=== PATIENT | female | born 1960 | race Caucasian/White ===

== ENCOUNTER → 2025-03-11 09:51 | Outpatient (CLI) | payer OTHER, SELFPAY ==
--- NOTE | 2025-03-11 09:58 | DI.CT.S_ITS ---
PROCEDURE: CT CERVIAL SPINE W CON INDICATIONS: Encounter for other general examination TECHNIQUE: After the administration of intravenous Isovue contrast, 3 mm thick sections acquired through the levels of interest. Sagittal and coronal reformats were then constructed. For radiation dose reduction, the following was used: automated exposure control. COMPARISON: None. FINDINGS: Straightening of the normal cervical lordosis. Normal bone mineralization, prevertebral soft tissue and craniovertebral relationships. No abnormal enhancement. At C3-4, discectomy and fusion with good graft incorporation. Anterior plate and screw instrumentation in good position. No evidence of hardware failure or loosening. Mild residual central stenosis. No foraminal stenosis. At C4-5, hypertrophic arthropathy results and moderate central stenosis. Moderate bilateral foraminal stenosis. At C5-6, a posterior disc osteophyte complex and hypertrophic arthropathy. Kfhi-ar-riuoosmo central stenosis. Moderate to severe bilateral foraminal stenosis. At C6-7, hypertrophic arthropathy. Mild central stenosis. Moderate bilateral foraminal stenosis, left greater than right IMPRESSION: Multilevel degenerative disc disease and arthropathy results in varying degrees of central and foraminal stenosis including moderate central and bilateral foraminal stenosis at C4-5 as well as moderate to severe foraminal stenosis at C5-6 Approved by: Jose Guadalupe Tillman M.D. on 03/11/2025 at 15:20
[2025-03-11 10:18] LABS: Estimated Glomerular Filt Rate > 60 mL/min (>60)
== END ==
PROVIDERS: Student in an Organized Health Care Education/Training Program; PCP Internal Medicine; Referring Provider Internal Medicine; Visit Provider Internal Medicine
DX: Z00.8 Encounter for other general examination (principal); M50.321 Other cervical disc degeneration at C4-C5 level; M47.812 Spondylosis without myelopathy or radiculopathy, cervical region; M48.02 Spinal stenosis, cervical region; Z98.1 Arthrodesis status
CPT/HCPCS: 36415; 72126; 82565; Q9967